=== PATIENT | male | born 1995 | race Caucasian/White ===

== ENCOUNTER 2016-07-06 17:14 | Emergency (ER) | payer MEDICAID, OTHER ==
--- NOTE | 2016-07-06 18:54 | ED Physician Chart ---
Chief Complaint/HPI - Patient Information Date Seen:: 07/06/16 Time Seen:: 17:55 Chief Complaint:: Fever History of Present Illness:: Onset x 3 days [employer] of fever, S/T, productive cough, congestion; no C/P, SOB, Abd pain, A/N/V/D/C, chills; Allergies:: Allergies Allergy/AdvReac Type Severity Reaction Status Date / Time No Known Allergies Allergy Verified 07/06/16 17:50 Vitals:: Vital Signs - 8 hr 07/06/16 17:51 Temp 100.9 F HR 111 RR 15 BP 125/56 O2 Sat % 95 Historian:: Patient, Family Member Review:: Nurse's Note Reviewed <Ash Little - Last Filed: 07/06/16 19:43> - Patient Information Allergies:: Allergies Allergy/AdvReac Type Severity Reaction Status Date / Time No Known Allergies Allergy Verified 07/06/16 17:50 Vitals:: Vital Signs - 8 hr 07/06/16 07/06/16 17:51 19:20 Temp 100.9 F 103.1 F HR 111 107 RR 15 18 BP 125/56 117/63 O2 Sat % 95 96 <Robert Moran - Last Filed: 07/06/16 20:19> Review of Systems - Review of Systems General/Constitutional: Fever, Chills, No weight loss, Weakness, No diaphoresis , No edema, No loss of appetite Skin: No skin lesions, No rash, No bruising Head: Headache, No light-headedness Eyes: No loss of vision, No pain, No diplopia ENT: No earache, Nasal drainage, Sore throat, No tinnitus Neck: No neck pain, No swelling, No thyromegaly, No stiffness, No mass noted Cardio Vascular: No chest pain, No palpitations, No PND, No orthopnea, No edema Pulmonary: No SOB, Cough, No sputum, No wheezing GI: Nausea, Vomiting, Diarrhea, No pain, No melena, No hematochezia, No constipation, No hematemesis G/U: No dysuria, No frequency, No hematuria Musculoskeletal: No bone or joint pain, No back pain, No muscle pain Endocrine: No polyuria, No polydipsia Psychiatric: No prior psych history, No depression, No anxiety, No suicidal ideation Hematopoietic: No bruising, No lymphadenopathy Allergic/Immuno: No urticaria, No angioedema Neurological: No syncope, No focal symptoms, No weakness, No paresthesia, No headache, No seizure, No dizziness, No confusion, No vertigo <Ash Little Last Filed: 07/06/16 19:43> Past Medical History - Past Medical History Past Medical History: No significant medical hx <Ash Little Last Filed: 07/06/16 19:43> Family Medical History - Family Member Mother History Unknown: Yes <Ash Little Last Filed: 07/06/16 19:43> Physical Exam - Physical Examination General/Constitutional: Awake, Well-developed, well-nourished, Alert, No distress, GCS 15, Non-toxic appearing, Ambulatory Head: Atraumatic Eyes: Lids, conjuctiva normal, PERRL, EOMI Skin: Nl inspection, No rash, No skin lesions, No ecchymosis, Well hydrated, No lymphadenopathy ENMT: External ears, nose nl, Nasal exam nl, Lips, teeth, gums nl Other ENMT comments:: Pharynx: injected Neck: Nontender, Full ROM w/o pain, No JVD, No nuchal rigidity, No bruit, No mass, No stridor Respiratory: Nl effort/Exclusion, No Wheeze/Rhonchi/Rales Other Respiratory comments:: Lungs: + scattered Rhonchi Left side Cardio Vascular: RRR, No murmur, gallop, rubs, NL S1 S2 GI: No tenderness/rebounding/guarding, No organomegaly, No hernia, Normal BS's, Nondistended, No mass/bruits, No McBurney tenderness : No CVA tenderness Extremities: No tenderness or effusion, Full ROM, normal strength in all extremities, No edema, Normal digits & nails Neuro/Psych: Alert/oriented, DTR's symmetric, Normal sensory exam, Normal motor strength, Judgement/insight normal, Mood normal, Normal gait, No focal deficits Misc: normal gait, Normal back, No paraspinal tenderness <Ash Little Last Filed: 07/06/16 19:43> Labs/Radiology/EKG Results - Lab Results Comments:: Na+: 134 - Radiology Results Comments:: CXR: LLL haziness suggestive of early infiltrate <Ash Little - Last Filed: 07/06/16 19:43> - Lab Results Results: Laboratory Tests 07/06/16 07/06/16 19:06 19:06 WBC 7.9 RBC 5.00 Hgb 15.5 Hct 45.3 MCV 90.6 MCH 31.1 H MCHC Differential 34.3 RDW 12.4 Plt Count 167 MPV 8.8 Neutrophils (Manual) 77 Lymphocytes 8 L Monocytes 9 Eosinophils 6 H Platelet Estimate ADEQUATE Sodium 134 L Potassium 3.8 Chloride 103 Carbon Dioxide 25.7 Anion Gap 9.1 BUN 10 Creatinine 1.0 Est GFR ( Amer) > 60.0 Est GFR (Non-Af Amer) > 60.0 BUN/Creatinine Ratio 10.0 Glucose 97 Calcium 9.7 Total Bilirubin 0.8 AST 21 ALT 18 Alkaline Phosphatase 49 Total Protein 7.4 Albumin 4.7 Globulin 2.7 Albumin/Globulin Ratio 1.7 <Robert Moran - Last Filed: 07/06/16 20:19> ED Septic Shock - . Is Septic Shock (SBP<90, OR Lactate>4 mmol\L) present?: No - <6hrs of presentation: Vital Signs: Vital Signs - 8 hr 07/06/16 17:51 Temp 100.9 F HR 111 RR 15 BP 125/56 O2 Sat % 95 <Ash Little - Last Filed: 07/06/16 19:43> - <6hrs of presentation: Vital Signs: Vital Signs - 8 hr 07/06/16 07/06/16 17:51 19:20 Temp 100.9 F 103.1 F HR 111 107 RR 15 18 BP 125/56 117/63 O2 Sat % 95 96 <Robert Moran - Last Filed: 07/06/16 20:19> Reassessment (Disposition) - Reassessment Reassessment:: Patient handed off to me at change of shift. Review chest x-ray. Possible left lower lobe early infiltrates. No leukocytosis. Single AP VIEW Portable Chest X-ray was interpreted independently and contemporaneously by Anthony Moran MD: No cardiomegaly Normal mediastinum Possible early left lower lobe infiltrates No pneumothorax No soft tissue or bony abnormalities Blood pressure was noted to be elevated over 120/80. There were no signs of hypertension. Discussed the findings with the patient and recommended that the patient follow up with the primary care physician regarding the elevated blood pressure. Patient was seen at urgent care earlier today. Received azithromycin and Robitussin-AC. First dose of azithromycin already. Has Robitussin-AC for antitussive. Agree with continuation of antibiotics and antitussive when necessary. We will add ibuprofen Rx for pain and fever. Recommend follow-up with PCP 1-2 days. Return to ER precautions are given. Patient says that he understands and agrees with the plan. Reassessment Condition:: Improved - Diagnosis Diagnosis:: Acute fever cough due to an acute bronchitis Elevated blood pressure without diagnosis of hypertension - Aftercare/Follow up Instructions Aftercare/Follow-Up Instructions:: Counseled pt regarding lab results/diagnosis & need follow up, Refer to Discharge Instructions Medication Prescribed:: Ibuprofen - Patient Disposition Discharge/Transfer:: Home Time:: 20:18 Condition at Disposition:: Improved <Robert Moran - Last Filed: 07/06/16 20:19> ED Discharge Plan <Ash Little - Last Filed: 07/06/16 19:43> <Robert Moran - Last Filed: 07/06/16 20:19> - Patient Disposition Admit/Discharge/Transfer: PT DISCHARGED HOME Condition at Disposition: Improved Instructions: Bronchitis, [id number]
[2016-07-06 19:13] LABS: HEMATOCRIT 45.3 % (39.0-49.0); HEMOGLOBIN 15.5 gm/dL (13.2-17.3); MEAN CELL VOLUME 90.6 fl (80-99); MEAN CORPUSCULAR HEMOGLOBIN 31.1 pg (26.0-30.0); MEAN CORPUSCULAR HGB CONC 34.3 pg (28.0-36.0); MEAN PLATELET VOLUME 8.8 fl; PLATELET COUNT 167 Th/cmm (150-400); RED CELL DISTRIBUTION WIDTH 12.4 % (11.5-20.0); WHITE BLOOD COUNT 7.9 Th/cmm (4.8-10.8)
[2016-07-06] MEDS ORDERED: Sodium Chloride 0.9% 1,000 ML IV ONE (19:25)
[2016-07-06] MEDS ORDERED: cefTRIAXone 1 GM in Sodium Chloride 0.9% 50 ML IV ONE (19:26)
[2016-07-06 19:28] LABS: ALB/GLOB RATIO 1.7 (1.0-1.8); ALKALINE PHOSPHATASE 49 U/L (34-104); ANION GAP 9.1 (7.0-16.0); BILIRUBIN,TOTAL 0.8 mg/dL (0.3-1.0); BUN - UREA NITROGEN 10 mg/dL (7-25); CALCIUM SERUM 9.7 mg/dL (8.6-10.3); CARBON DIOXIDE 25.7 mEq/L (21.0-31.0); CHLORIDE 103 mEq/L (98-107); GLUCOSE 97 mg/dL (70-105); POTASSIUM SERUM 3.8 mEq/L (3.5-5.1); SGOT 21 U/L (13-39); SGPT/ALT 18 U/L (7-52); SODIUM SERUM 134 mEq/L (136-145)
[2016-07-06 19:33] LABS: EOSINOPHIL 6 % (0-5); NEUTROPHILS 77 % (40-80); PLATELET ESTIMATE ADEQUATE (NORMAL); TOTAL CELLS COUNTED 100
--- NOTE | 2016-07-07 10:19 | Diagnostic Imaging Report ---
Portable chest x-ray History: Cough, shortness of breath Allowing for portable technique the heart size is normal. No focal pulmonary parenchymal processes. No hilar or mediastinal abnormalities. Impression: No acute abnormalities.
== END 2016-07-06 20:55 | disposition home or self-care (01) ==
LOC: ER 17:14
DX: J20.9 Acute bronchitis, unspecified (principal); R03.0 Elevated blood-pressure reading, without diagnosis of hypertension
CPT/HCPCS: 99285; 96365; 71010; 36415; 85007; 85027; 80053; 87040 ×2; J0696; J7030; Z7610